=== PATIENT | male | born 2000 | race Caucasian/White ===

== ENCOUNTER 2023-07-02 10:13 | Emergency (ER) | payer SELFPAY ==
[~2023-07-02] VITALS: Ht 162.6 cm; Wt 69.1 kg
[~2023-07-02 10:13] MED LIST: CARAFATE 1GM1 G PO
[2023-07-02 10:16] VITALS: TEMP 97.5
[2023-07-02] MEDS ORDERED: ZOLOFT 50MG50 MG PO (10:21)
[2023-07-02] MEDS ORDERED: Ketorolac 30 MG/ML VIAL IV ONE (10:30)
[2023-07-02] MEDS ORDERED: NS 1,000 ML IV ONE (10:30)
[2023-07-02] MEDS ORDERED: Ondansetron 4 MG/2 ML VIAL IV ONE (10:30)
[2023-07-02 11:01] LABS: BASO % 0.4 % (0.0-2.0); EOS # 0.2 K/mm3 (0.0-0.7); EOS % 2.5 % (0.0-4.0); GRAN # 5.3 K/mm3 (1.4-6.5); GRAN % 63.4 % (42.2-75.2); HEMATOCRIT 39.5 % (36.0-47.0); HEMOGLOBIN 13.4 g/dl (12.5-16.1); LYMPH % 24.5 % (20.0-51.0); MEAN CELL VOLUME 87 fl (80.0-95.0); MEAN CORPUSCULAR HEMOGLOBIN 30 pg (26-32); MEAN CORPUSCULAR HGB CONC 34 g/dl (33.0-37.0); MEAN PLATELET VOLUME 9.9 fl (7.4-10.4); MONO # 0.8 K/mm3 (0.1-0.6); PLATELET COUNT 220 K/mm3 (130-400); RED BLOOD COUNT 4.55 M/mm3 (4.20-5.60); REDCELL DISTRIBUTION WIDTH-CV 11.9 % (11.5-14.5)
[2023-07-02 11:21] LABS: BILIRUBIN,TOTAL 0.5 mg/dL (0.2-1.2); CALCIUM 9.3 mg/dL (8.4-10.2); CREATININE, serum 1.03 mg/dL (0.72-1.25); POTASSIUM 3.7 mmol/L (3.5-4.5); TOTAL PROTEIN 6.8 gm/dL (6.2-8.1)
[2023-07-02] MEDS ORDERED: NS 100 ML IV SCH (11:38)
[2023-07-02] MEDS ORDERED: Iohexol 300 - 100 ML VIAL IV ONE (11:38)
[2023-07-02 11:57] LABS: COLLECTION METHOD CLEAN CATCH
[2023-07-02 12:13] LABS: URINE APPEARANCE Cloudy (CLEAR/HAZY); URINE BLOOD 3+ (NEGATIVE); URINE COLOR OTHER (YELLOW); URINE GLUCOSE Negative (NEGATIVE); URINE KETONE Negative (NEGATIVE); URINE NITRATE Negative (NEGATIVE); URINE PROTEIN(semi-quant) 1+ (NEGATIVE); URINE UROBILINOGEN 0.2 E.U/dL (0.2-1.0)
[2023-07-02 12:14] LABS: BUDDING YEAST Present (NOT PRESENT); URINE RBC 20-50 /hpf (0-2)
[2023-07-02] MEDS ORDERED: NORCO 325 MG-51 TAB PO (12:48)
[2023-07-02 13:17] VITALS: BP 105/63; PULSE 73
== END 2023-07-02 13:20 | disposition home or self-care (01) ==
LOC: COL.ER 10:13
PROVIDERS: Physician Assistant
DX: N20.2 Calculus of kidney with calculus of ureter (principal); F17.200 Nicotine dependence, unspecified, uncomplicated
CPT/HCPCS: J1885; J2405; J7030; Q9967

== ENCOUNTER 2023-12-31 00:56 | Emergency (ER) | payer SELFPAY ==
[~2023-12-31] VITALS: Ht 165.1 cm; Wt 63.6 kg
[~2023-12-31 00:56] MED LIST changes: +NORCO 325 MG-51 TAB PO; +ZOLOFT 50MG50 MG PO
[2023-12-31 01:00] VITALS: PULSE 113; TEMP 98.8
[2023-12-31] MEDS ORDERED: FLEXERIL 1010 MG/TAB PO (01:18)
[2023-12-31] MEDS ORDERED: NAPROSYN500 MG PO (01:18)
== END 2023-12-31 01:25 | disposition home or self-care (01) ==
LOC: COL.ER 00:56
DX: M54.6 Pain in thoracic spine (principal); M54.50 Low back pain, unspecified; G89.29 Other chronic pain; F17.290 Nicotine dependence, other tobacco product, uncomplicated